=== PATIENT | female | born 1945 | race Caucasian/White ===

== ENCOUNTER → 2016-12-23 | Outpatient (CLI) | payer MEDICARE, OTHER ==
[~2016-12-23] MED LIST: ASCO500T9 PO; CLIN300C86 PO; HYDR-4246 PO; LAMO5TAB3 PO; MULT1TAB69 PO; OMEG500C PO; WARF2.5T48 PO
[2016-12-23 10:46] LABS: ALBUMIN 4.6 G/DL (3.5-5.0); ALBUMIN/GLOBULIN RATIO 1.5 RATIO (1.1-2.2); ALKALINE PHOSPHATASE 98 U/L (38-126); ALT (SGPT) 57 U/L (9-52); ANION GAP 14 MEQ/L (5-15); AST (SGOT) 29 U/L (14-36); BUN/CREATININE RATIO 13 RATIO (6-26); CALCIUM 8.7 MG/DL (8.4-10.2); CHLORIDE 106 MEQ/L (98-107); CO2 - CARBON DIOXIDE 28 MEQ/L (22-30); CREATININE 0.9 MG/DL (0.7-1.2); GLOMERULAR FILTRATION RATE 62; GLUCOSE 92 MG/DL (65-110); POTASSIUM 3.9 MEQ/L (3.6-5); SODIUM 148 MEQ/L (134-144); TOTAL PROTEIN 7.7 G/DL (6.3-8.2)
[2016-12-23 11:00] LABS: LITHIUM < 0.2 MMOL/L (0.6-1.2)
[2016-12-23 11:17] LABS: THYROID STIM HORMONE-TSH 4.03 MIU/L (0.47-4.68)
== END ==
LOC: LAB 10:23
PROVIDERS: ATTEND Psychiatry & Neurology Psychiatry
DX: Z79.899 Other long term (current) drug therapy (principal)
CPT/HCPCS: 36415; 80053; 80178; 84443